=== PATIENT | female | born 1950 | race Caucasian/White ===

== ENCOUNTER 2016-10-11 23:08 | Emergency (ER) | payer MEDICARE, MEDICAID ==
[~2016-10-11] VITALS: Ht 154.9 cm; Wt 66.3 kg
[2016-10-11 23:19] VITALS: BP 153/72
--- NOTE | 2016-10-12 | NUR ---
PT TAKEN TO BED 5
--- NOTE | 2016-10-12 00:10 | NUR ---
PATIENT PRESENTS TO ED WITH DIZZINESS, CANT WALK BY HERSELF STARTED AT 2000HOURS, WHILE WORKING. PT DENIES N/V/D; SKIN IS PINK/WARM/DRY; AAOX4 WITH EVEN AND STEADY GAIT; LUNGS CLEAR BL; HR EVEN AND REGULAR; PT DENIES ANY FEVER, CP, SOB, OR COUGH AT THIS TIME; PATIENT STATES PAIN OF 0/10 AT THIS TIME; VSS; PATIENT POSITIONED FOR COMFORT; HOB ELEVATED; BEDRAILS UP X2; BED DOWN. ER MD MADE AWARE OF PT STATUS.
--- NOTE | 2016-10-12 00:26 | NUR ---
Dr. Gann evaluating patient at bedside.
[2016-10-12] MEDS ORDERED: MECLIZINE 25 MG TAB PO ONE (00:35)
[2016-10-12] MEDS ORDERED: ONDANSETRON 4 MG ODT PO ONE (00:35)
[2016-10-12 00:46] LABS: EOSINOPHILS # (AUTO) 0.2 K/uL (0-0.4); EOSINOPHILS % (AUTO) 2.7 % (0.0-4.0); LYMPHOCYTES # (AUTO) 1.7 K/uL (2.5-16.5); RED CELL DISTRIBUTION WIDTH 12.7 % (11.6-13.7)
[2016-10-12 00:48] LABS: BASOPHILS # (AUTO) 0.2 K/uL (0.00-0.22); BASOPHILS % (AUTO) 2.3 % (0.0-2.0); LYMPHOCYTES % (AUTO) 24.2 % (20.5-51.1); MEAN CORPUSCULAR HEMOGLOBIN 30 pg (27-31); MEAN CORPUSCULAR HGB CONC 33 g/dL (33-37); MEAN CORPUSCULAR VOLUME 91 fL (80-94); MONOCYTES # (AUTO) 0.4 K/uL (0.8-1.0); MONOCYTES % (AUTO) 5.3 % (1.7-9.3); NEUTROPHILS # (AUTO) 4.6 K/uL (1.8-7.7); NEUTROPHILS % (AUTO) 65.5 % (42.2-75.2); PLATELET COUNT (AUTO) 192 K/uL (140-450); RED BLOOD CELL COUNT(AUTO) 4.28 MIL/uL (4.20-5.40); WHITE BLOOD COUNT (AUTO) 7.1 K/uL (4.8-10.8)
--- NOTE | 2016-10-12 00:59 | NUR ---
PT RETURN FROM CT
[2016-10-12 01:12] LABS: CREATINE KINASE MB 3.3 ng/mL (0-3.6)
--- NOTE | 2016-10-12 01:25 | NUR ---
Patient appears to be resting comfortably in bed. Vital Signs within normal limits. Respirations even and unlabored.
[2016-10-12 01:33] LABS: ANION GAP 16.5 (8-16); CARBON DIOXIDE 22.6 mmol/L (21-32); CREATININE 0.9 mg/dL (0.6-1.3); POTASSIUM 4.1 mmol/L (3.5-5.1)
--- NOTE | 2016-10-12 01:45 | NUR ---
Patient discharged with v/s stable. Written and verbal after care instructions given and explained. Patient verbalized understanding. Ambulatory with steady gait. All questions addressed prior to discharge. Advised to follow up with PMD. Addendum: 10/12/16 at 0613 by [email or web address] MECLIZINE HYDROCHLORIDE 25MG TID/PRN, SUDAFED 12HRS 120MG CAP BID/PRN, ZOFRAN ODT 4MG 1TAB Q8HRS/PRN
[2016-10-12 01:47] VITALS: BP 147/69
== END 2016-10-12 01:45 | disposition home or self-care (01) ==
LOC: MED 23:08
DX: R42 Dizziness and giddiness (principal); I10 Essential (primary) hypertension; R11.0 Nausea; H53.8 Other visual disturbances
CPT/HCPCS: 36415; 70450; 71010; 80048; 82550; 82553; 84484; 85025; 93005; 99285; J8597; Q0092; S0119

== ENCOUNTER 2023-03-06 20:57 | Emergency (ER) | payer OTHER ==
[~2023-03-06] VITALS: Ht 149.9 cm; Wt 63.2 kg
[2023-03-06 21:04] VITALS: BP 197/110; PULSE 96; RESP 16; TEMP 97; O2SAT 97
[2023-03-06 22:04] LABS: BASOPHILS % (AUTO) 0.7 % (0.0-2.0); EOSINOPHILS # (AUTO) 0.1 K/uL (0-0.4); EOSINOPHILS % (AUTO) 3.4 % (0.0-4.0); HEMATOCRIT 38.2 % (36-48); HEMOGLOBIN 13.1 g/dL (12.0-16.0); LYMPHOCYTES # (AUTO) 1.6 K/uL (2.5-16.5); LYMPHOCYTES % (AUTO) 38.3 % (20.5-51.1); MEAN CORPUSCULAR HEMOGLOBIN 31 pg (27-31); MEAN CORPUSCULAR HGB CONC 34 g/dL (33-37); MEAN CORPUSCULAR VOLUME 91.5 fL (80-94); MONOCYTES # (AUTO) 0.5 K/uL (0.8-1.0); MONOCYTES % (AUTO) 11.1 % (1.7-9.3); NEUTROPHILS # (AUTO) 1.9 K/uL (1.8-7.7); NEUTROPHILS % (AUTO) 46.5 % (42.2-75.2); PLATELET COUNT (AUTO) 219 K/uL (140-450); RED BLOOD CELL COUNT(AUTO) 4.17 MIL/uL (4.20-5.40); RED CELL DISTRIBUTION WIDTH 13.5 % (11.6-13.7); WHITE BLOOD COUNT (AUTO) 4.1 K/uL (4.8-10.8)
[2023-03-06 22:17] LABS: ANION GAP 12.8 (8-16); CALCIUM 8.6 mg/dL (8.5-10.1); CARBON DIOXIDE 27.3 mmol/L (21-32); CHLORIDE 100 mmol/L (98-107); GLUCOSE 150 mg/dL (74-106); POTASSIUM 4.1 mmol/L (3.5-5.1); SODIUM SERUM 136 mmol/L (136-145); UREA NITROGEN, BLOOD 17 mg/dL (7-18)
[2023-03-06] MEDS ORDERED: ALUMINUM HYD/MAG/SIMETHICONE 30 ML UDC PO ONE (22:20)
[2023-03-06 22:22] LABS: INR 0.95 (0.8-1.2); PARTIAL THROMBOPLASTIN TIME 27.2 secs (22-35.6)
[2023-03-06 22:42] LABS: ALANINE AMINOTRANSFERASE 28 U/L (12-78); ALBUMIN 3.2 g/dL (3.4-5.0); ALKALINE PHOSPHATASE 126 U/L (50-136); ASPARTATE AMINOTRANSFERASE 33 U/L (15-37); BILIRUBIN,DIRECT 0.1 mg/dL (0.0-0.3); TOTAL BILIRUBIN 0.3 mg/dL (0.0-1.0); TOTAL PROTEIN, SERUM 7.6 g/dL (6.4-8.2)
[2023-03-07] MEDS ORDERED: OMEP40EC23 PO (01:08)
[2023-03-07] MEDS ORDERED: SUCR1TAB35 PO (01:08)
[2023-03-07 01:28] VITALS: BP 154/88; PULSE 89; RESP 16; TEMP 97; O2SAT 98
== END 2023-03-07 01:28 | disposition home or self-care (01) ==
LOC: MED 20:57
DX: K20.90 Esophagitis, unspecified without bleeding (principal); R07.9 Chest pain, unspecified; R10.13 Epigastric pain; Z79.899 Other long term (current) drug therapy
CPT/HCPCS: 36415; 71045; 71275; 74174; 80048; 80076; 83880; 84484; 85025; 85610; 85730; 93005; 99285; Q0092; Q9967